=== PATIENT | female | born 1965 | race Caucasian/White ===

== ENCOUNTER 2018-08-31 09:07 | Emergency (ER) | payer MEDICARE, SELFPAY ==
[2018-08-31 09:10] VITALS: BP 129/77; PULSE 98; RESP 18; TEMP 36.9; O2SAT 100
--- NOTE | 2018-08-31 09:24 | DI.RAD.S_ITS ---
PROCEDURE: XR CHEST 1V INDICATIONS: wheezing, recent chest congestion TECHNIQUE: One view of the chest was acquired. COMPARISON: None. FINDINGS: Surgical changes and devices: Anterior cervical spine fusion hardware.. Lungs and pleura: A diffusely coarse interstitial markings bilaterally. No dense consolidation. No pleural effusions or pneumothorax. Mediastinum: Mediastinal contours appear normal. Heart size is normal. Bones and chest wall: No suspicious bony lesions. Overlying soft tissues appear unremarkable. IMPRESSION: Diffuse coarsened interstitial markings, nonspecific. This may reflect chronic edema or acute interstitial infectious/inflammatory process. Correlate clinically. Dictated by: Sophie Pineda M.D. on 08/31/2018 at 10:21 Approved by: Sophie Pineda M.D. on 08/31/2018 at 10:22
[2018-08-31] MEDS: ALBUTEROL/IPRATROPIUM 3 ML AMPUL INH (09:26)
[2018-08-31 09:30] VITALS: PULSE 78; RESP 14; O2SAT 99
--- NOTE | 2018-08-31 09:33 | ED.URI ---
HPI - URI/Sore Throat General Chief Complaint: Upper Respiratory Symptoms Stated Complaint: states wheezing, coughing, stuffy nose x1week Time Seen by Provider: 08/31/18 09:22 Source: patient Mode of arrival: ambulatory Limitations: no limitations History of Present Illness HPI Narrative: 53-year-old female comes in with complaint of wheezing. Patient states she has had upper respiratory congestion of the nose with a nonproductive cough for a week. Patient states no fevers. She states this about once a year she will get sick and required albuterol inhaler. She has 1 at home. She states she does get steroid sometimes. She has a history of tobacco use states she quit about July 18. Patient states that she does not take anything regularly for her lungs or require inhalers regularly.. Patient has not had any nausea no vomiting, no chest pain, other than some shortness of breath with wheezing she denies any other lung issues. Patient has not had any other GI symptoms. No swelling in her lower extremities. She states she has a history of a carry malformation with repair she takes multiple medications for her bones but denies any cardiac or other major medical problems. Related Data Previous Rx's Medication Instructions Recorded prednisone 40 mg PO DAILY 5 Days #10 tab 08/31/18 Allergies Allergy/AdvReac Type Severity Reaction Status Date / Time No Known Drug Allergies Allergy Verified 08/31/18 10:22 Review of Systems Review of Systems ROS Unobtainable: All systems reviewed & are unremarkable except as noted in HPI and below Constitutional Denies chills, Denies fever(s), Denies lethargy and Denies weakness Cardiovascular Denies chest pain, Denies irregular heart rhythm, Denies palpitations, Denies dyspnea, Denies dyspnea on exertion and Denies orthopnea Respiratory Denies change in phlegm color, Reports chest congestion, Reports cough, Denies excessive phlegm production, Denies dyspnea, Denies dyspnea on exertion and Denies wheezing Gastrointestinal Gastrointestinal: Denies abdominal pain, Denies change in bowel habits, Denies diarrhea, Denies nausea and Denies vomiting Genitourinary Denies dysuria, Denies urinary hesitancy and Denies urinary urgency Neurologic Denies weakness Endocrine Denies palpitations Allergic/Immunologic Denies wheezing PFSH Medical History Osteoporosis (Acute) Chiari malformation (Chronic) Social History Smoking Status: Former smoker Social History Smoking Status: Former smoker Exam Narrative Exam Narrative: GEN: well nourished, well appearing female, alert and oriented x 3, patient appears to be in mild distress. HEENT: Atraumatic, pupils are equal round reactive to light, extraocular movements are intact, nares are clear, TMs are clear with no fluid, there is no conjunctival pallor. Throat is clear without any exudates, erythema, tonsillar enlargement or uvular deviation HEART: Regular rate and rhythm without murmur, clicks, rubs. LUNGS:Lungs equal breath sounds bilaterally bilateral expiratory wheezes, no rales, crackles comma chest moves symmetrically. No tachypnea or accessory muscle use. Patient speaks in full sentences. ABD:bowel sounds normal, soft, non-tender, no guarding, rebound, rigidity, no masses noted, no hepatosplenomegaly :No CVA tenderness MSCL: full range of motion, normal gait NEURO:CN 2-12 intact, sensation normal Initial Vital Signs Initial Vital Signs: Vital Signs Temperature 98.5 F 08/31/18 09:10 Pulse Rate 98 H 08/31/18 09:10 Respiratory Rate 18 08/31/18 09:10 Blood Pressure 129/77 08/31/18 09:10 Pulse Oximetry 100 08/31/18 09:10 Course Orders Ordered: ED Orders 08/31/18 09:19 Consult to Respiratory Therapy Evaluate & Treat 08/31/18 09:24 XR chest 1V Stat Discontinued Medications Albuterol (Ventolin) 2.5 mg INH NOW PRN PRN Reason: Shortness Of Breath Or Wheezing Last Admin: 08/31/18 09:45 Dose: 2.5 mg Admin: 08/31/18 09:37 Dose: 2.5 mg Albuterol/Ipratropium (Duoneb) 3 ml INH NOW ONE Stop: 08/31/18 09:21 Last Admin: 08/31/18 10:40 Dose: Not Given Albuterol/Ipratropium (Duoneb) 3 ml INH NOW ONE Stop: 08/31/18 09:23 Last Admin: 08/31/18 09:26 Dose: 3 ml Prednisone (Deltasone) 60 mg PO NOW ONE Stop: 08/31/18 09:23 Last Admin: 08/31/18 10:25 Dose: 60 mg Vital Signs - 8 hr 08/31/18 09:10 08/31/18 09:30 08/31/18 09:38 Temperature 98.5 F Pulse Rate 98 H 78 80 Respiratory Rate 18 14 16 Blood Pressure 129/77 Blood Pressure [Right Arm] Pulse Oximetry 100 99 98 08/31/18 10:30 Temperature Pulse Rate 84 Respiratory Rate 20 Blood Pressure Blood Pressure [Right Arm] 107/52 L Pulse Oximetry 96 [facility] - URI/Sore Throat Imaging Data Chest x-ray: Attestation: I personally reviewed and interpreted this imaging study as follows: My impression: No infiltrate, mild atelectasis. No acute process. No priors for comparison. Radiologist's impression: [address] [address] XRay Report Signed Patient: Rosaura Sierra [facility]#: [id number] : 1965Acct:[id number] Age/Sex: 53 / FDate of Service: 08/31/18 Loc: ED Accession Number: [id number] Procedure: XR chest 1V Ordering Provider: Lyssa Camacho D.O. PROCEDURE: XR CHEST 1V INDICATIONS: wheezing, recent chest congestion TECHNIQUE: One view of the chest was acquired. COMPARISON: None. FINDINGS: Surgical changes and devices: Anterior cervical spine fusion hardware.. Lungs and pleura: A diffusely coarse interstitial markings bilaterally. No dense consolidation. No pleural effusions or pneumothorax. Mediastinum: Mediastinal contours appear normal. Heart size is normal. Bones and chest wall: No suspicious bony lesions. Overlying soft tissues appear unremarkable. IMPRESSION: Diffuse coarsened interstitial markings, nonspecific. This may reflect chronic edema or acute interstitial infectious/inflammatory process. Correlate clinically. Dictated by: Sophie Pineda M.D. on 08/31/2018 at 10:21 Approved by: Sophie Pineda M.D. on 08/31/2018 at 10:22 [facility] Narrative Medical decision making narrative: Patient has a history sounds like reactive airway or possibly mild COPD exacerbation. Patient quit smoking in July. She was encouraged to continue along with course. Plan for a dose of oral prednisone here as well as DuoNeb and re-evaluation. Recheck patient had a DuoNeb and albuterol, wheezes almost completely gone there is very mild. Patient states she feels much better. Plan to DC home she has albuterol with spacer at home and feels comfortable using it. Will give her a short burst of oral prednisone. Patient quit smoking in July encouraged her to continue. Patient and I discussed reasons to return signs and symptoms to watch out for. Chest x-ray was reviewed does not show any clear signs of pneumonia. Discharge Plan Departure Patient Disposition: Home Clinical Impression: Upper respiratory infection, Acute exacerbation of chronic obstructive pulmonary disease (COPD) Discharge Date/Time: 08/31/18 10:57 Interventions: ED Discharge Assessment Last Done: 08/31/18 10:57 Instructions: DI for Chronic Obstructive Pulmonary Disease Activity Restrictions/Additional Instructions: Follow-up with your primary care physician you're not improving in the next 2-3 days. Take steroids until they are completely gone. Keep up the good work avoiding cigarettes. Continue to use albuterol 1-2 puffs every 4 hr as needed for wheezing. Return to the emergency department for fevers greater than 100.4, new chest pain, worsening shortness of breath, persistent wheezing that does not respond to breathing treatments, lightheadedness, passing out, swelling in her lower extremities or other new or concerning symptoms. Prescriptions: New prednisone 20 mg tablet 40 mg PO DAILY 5 Days Qty: 10 RF: 0
[2018-08-31] MEDS: ALBUTEROL 2.5 MG/3 ML NEB (ADULT) INH ×2 (09:37→09:45)
[2018-08-31 09:38] VITALS: PULSE 80; RESP 16; O2SAT 98
--- NOTE | 2018-08-31 09:38 | ED_ITS ---
HPI - URI/Sore Throat General Chief Complaint: Upper Respiratory Symptoms Stated Complaint: states wheezing, coughing, stuffy nose x1week Time Seen by Provider: 08/31/18 09:22 Source: patient Mode of arrival: ambulatory Limitations: no limitations History of Present Illness HPI Narrative: 53-year-old female comes in with complaint of wheezing. Patient states she has had upper respiratory congestion of the nose with a nonproductive cough for a week. Patient states no fevers. She states this about once a year she will get sick and required albuterol inhaler. She has 1 at home. She states she does get steroid sometimes. She has a history of tobacco use states she quit about July 18. Patient states that she does not take anything regularly for her lungs or require inhalers regularly.. Patient has not had any nausea no vomiting, no chest pain, other than some shortness of breath with wheezing she denies any other lung issues. Patient has not had any other GI symptoms. No swelling in her lower extremities. She states she has a history of a carry malformation with repair she takes multiple medications for her bones but denies any cardiac or other major medical problems. Related Data Previous Rx's Medication Instructions Recorded prednisone 40 mg PO DAILY 5 Days #10 tab 08/31/18 Allergies Allergy/AdvReac Type Severity Reaction Status Date / Time No Known Drug Allergies Allergy Verified 08/31/18 10:22 Review of Systems Review of Systems ROS Unobtainable: All systems reviewed & are unremarkable except as noted in HPI and below Constitutional Denies chills, Denies fever(s), Denies lethargy and Denies weakness Cardiovascular Denies chest pain, Denies irregular heart rhythm, Denies palpitations, Denies dyspnea, Denies dyspnea on exertion and Denies orthopnea Respiratory Denies change in phlegm color, Reports chest congestion, Reports cough, Denies excessive phlegm production, Denies dyspnea, Denies dyspnea on exertion and Den ies wheezing Gastrointestinal Gastrointestinal: Denies abdominal pain, Denies change in bowel habits, Denies diarrhea, Denies nausea and Denies vomiting Genitourinary Denies dysuria, Denies urinary hesitancy and Denies urinary urgency Neurologic Denies weakness Endocrine Denies palpitations Allergic/Immunologic Denies wheezing PFSH Medical History Osteoporosis (Acute) Chiari malformation (Chronic) Social History Smoking Status: Former smoker Social History Smoking Status: Former smoker Exam Narrative Exam Narrative: GEN: well nourished, well appearing female, alert and oriented x 3, patient appears to be in mild distress. HEENT: Atraumatic, pupils are equal round reactive to light, extraocular move ments are intact, nares are clear, TMs are clear with no fluid, there is no conjunctival pallor. Throat is clear without any exudates, erythema, tonsillar enlargement or uvular deviation HEART: Regular rate and rhythm without murmur, clicks, rubs. LUNGS:Lungs equal breath sounds bilaterally bilateral expiratory wheezes, no rales, crackles comma chest moves symmetrically. No tachypnea or accessory muscle use. Patient speaks in full sentences. ABD:bowel sounds normal, soft, non-tender, no guarding, rebound, rigidity, no masses noted, no hepatosplenomegaly :No CVA tenderness MSCL: full range of motion, normal gait NEURO:CN 2-12 intact, sensation normal Initial Vital Signs Initial Vital Signs: Vital Signs Temperature 98.5 F 08/31/18 09:10 Pulse Rate 98 H 08/31/18 09:10 Respiratory Rate 18 08/31/18 09:10 Blood Pressure 129/77 08/31/18 09:10 Pulse Oximetry 100 08/31/18 09:10 Course Orders Ordered: ED Orders 08/31/18 09:19 Consult to Respiratory Therapy Evaluate & Treat 08/31/18 09:24 XR chest 1V Stat Discontinued Medications Albuterol (Ventolin) 2.5 mg INH NOW PRN PRN Reason: Shortness Of Breath Or Wheezing Last Admin: 08/31/18 09:45 Dose: 2.5 mg Admin: 08/31/18 09:37 Dose: 2.5 mg Albuterol/Ipratropium (Duoneb) 3 ml INH NOW ONE Stop: 08/31/18 09:21 Last Admin: 08/31/18 10:40 Dose: Not Given Albuterol/Ipratropium (Duoneb) 3 ml INH NOW ONE Stop: 08/31/18 09:23 Last Admin: 08/31/18 09:26 Dose: 3 ml Prednisone (Deltasone) 60 mg PO NOW ONE Stop: 08/31/18 09:23 Last Admin: 08/31/18 10:25 Dose: 60 mg Vital Signs - 8 hr 08/31/18 09:10 08/31/18 09:30 08/31/18 09:38 Temperature 98.5 F Pulse Rate 98 H 78 80 Respiratory Rate 18 14 16 Blood Pressure 129/77 Blood Pressure [Right Arm] Pulse Oximetry 100 99 98 08/31/18 10:30 Temperature Pulse Rate 84 Respiratory Rate 20 Blood Pressure Blood Pressure [Right Arm] 107/52 L Pulse Oximetry 96 [facility] - URI/Sore Throat Imaging Data Chest x-ray: Attestation: I personally reviewed and interpreted this imaging study as follows: My impression: No infiltrate, mild atelectasis. No acute process. No priors for comparison. Radiologist's impression: [address] [address] XRay Report Signed Patient: Rosaura Sierra [facility]#: [id number] : 1965Acct:[id number] Age/Sex: 53 / FDate of Service: 08/31/18 Loc: ED Accession Number: [id number] Procedure: XR chest 1V Ordering Provider: Lyssa Camacho D.O. PROCEDURE: XR CHEST 1V INDICATIONS: wheezing, recent chest congestion TECHNIQUE: One view of the chest was acquired. COMPARISON: None. FINDINGS: Surgical changes and devices: Anterior cervical spine fusion hardware.. Lungs and pleura: A diffusely coarse interstitial markings bilaterally. No dense consolidation. No pleural effusions or pneumothorax. Mediastinum: Mediastinal contours appear normal. Heart size is normal. Bones and chest wall: No suspicious bony lesions. Overlying soft tissues appear unremarkable. IMPRESSION: Diffuse coarsened interstitial markings, nonspecific. This may reflect chronic edema or acute interstitial infectious/inflammatory process. Correlate clinically. Dictated by: Sophie Pineda M.D. on 08/31/2018 at 10:21 Approved by: Sophie Pineda M.D. on 08/31/2018 at 10:22 [facility] Narrative Medical decision making narrative: Patient has a history sounds like reactive airway or possibly mild COPD exacerbation. Patient quit smoking in July. She was encouraged to continue along with course. Plan for a dose of oral prednisone here as well as DuoNeb and re-evaluation. Recheck patient had a DuoNeb and albuterol, wheezes almost completely gone there is very mild. Patient states she feels much better. Plan to DC home she has albuterol with spacer at home and feels comfortable using it. Will give her a short burst of oral prednisone. Patient quit smoking in July encouraged her to continue. Patient and I discussed reasons to return signs and symptoms to watch out for. Chest x-ray was reviewed does not show any clear signs of pneumonia. Discharge Plan Departure Patient Disposition: Home Clinical Impression: Upper respiratory infection, Acute exacerbation of chronic obstructive pulmonary disease (COPD) Discharge Date/Time: 08/31/18 10:57 Interventions: ED Discharge Assessment Last Done: 08/31/18 10:57 Instructions: DI for Chronic Obstructive Pulmonary Disease Activity Restrictions/Additional Instructions: Follow-up with your primary care physician you're not improving in the next 2-3 days. Take steroids until they are completely gone. Keep up the good work avoiding cigarettes. Continue to use albuterol 1-2 puffs every 4 hr as needed for wheezing. Return to the emergency department for fevers greater than 100.4, new chest pain, worsening shortness of breath, persistent wheezing that does not respond to breathing treatments, lightheadedness, passing out, swelling in her lower extremities or other new or concerning symptoms. Prescriptions: New prednisone 20 mg tablet 40 mg PO DAILY 5 Days Qty: 10 RF: 0
[2018-08-31] MEDS: predniSONE 20 MG TABLET 60 MG PO (10:25)
[2018-08-31 10:30] VITALS: BP 107/52; PULSE 84; RESP 20; O2SAT 96
== END 2018-08-31 10:57 | disposition home or self-care (01) ==
PROVIDERS: Emergency Provider Emergency Medicine
DX: J06.9 Acute upper respiratory infection, unspecified (principal); J44.1 Chronic obstructive pulmonary disease with (acute) exacerbation
CPT/HCPCS: 71045; 94640; 99282; 99283; J7613

== ENCOUNTER 2023-03-24 15:58 | Emergency (ER) | payer MEDICARE, SELFPAY ==
[2023-03-24 16:02] VITALS: BP 124/82; PULSE 89; RESP 18; TEMP 36.6; O2SAT 98; BMI 36.6
--- NOTE | 2023-03-24 16:06 | DI.RAD.S_ITS ---
PROCEDURE: XR ANKLE RT MIN 3V INDICATIONS: trip and fall. hx of osteoperosis. TECHNIQUE: 3 views of the ankle were acquired. COMPARISON: None. FINDINGS: Bones: Comminuted distal tibial fracture with tibiotalar joint involvement. Nondisplaced distal fibular fracture noted as well. Marrow text osteopenia Soft tissues: No tibiotalar joint effusion. Achilles tendon appears normal. IMPRESSION: Comminuted intra-articular distal tibial fracture. Nondisplaced distal fibular fracture. Ankle mortise joint space is preserved and symmetric. Approved by: Raymond Guerrero M.D. on 03/24/2023 at 16:47
--- NOTE | 2023-03-24 17:27 | ED_ITS ---
HPI - Extremity Injury (Lower) <Noah Valdez PA-C - Last Filed: 03/24/23 18:56> General Chief Complaint: Extremity Injury, Lower Stated Complaint: Ankle inj Time Seen by Provider: 03/24/23 16:55 Source: patient and family Mode of arrival: Ambulatory History of Present Illness HPI Narrative: This is a 57-year-old female presents to the emergency department due to a right ankle injury. Patient states that she was walking through the house when her dog ran into her and she fell over and injured her right ankle. She does not report any knee, hip, or any other pain to the rest of her body. History of osteoporosis. Related Data Previous Rx's Medication Instructions Recorded oxycodone 5 mg capsule 5 mg PO Q6H PRN pain #20 caps 03/24/23 Allergies Allergy/AdvReac Type Severity Reaction Status Date / Time amoxicillin [From Augmentin] AdvReac Mild Nausea Verified 03/24/23 16:06 clavulanic acid AdvReac Mild Nausea Verified 03/24/23 16:06 [From Augmentin] Review of Systems <Noah Valdez PA-C - Last Filed: 03/24/23 18:56> Review of Systems Narrative: GENERAL: Denies chills, fatigue, malaise, fever, sweats. HEENT: Denies sinus pain, ear pain, sore throat, difficulty swallowing, dizz iness. RESPIRATORY: Denies dyspnea, cough, wheezing, hemoptysis, sputum. CARDIOVASCULAR: Denies chest pain, palpitations, orthopnea, edema, GASTROINTESTINAL: Denies nausea, vomiting, abdominal pain, diarrhea, constipation, melena. : Denies dysuria, frequency, incontinence, hematuria, urinary retention. MUSCULOSKELETAL: Right ankle pain SKIN: Denies rash, skin lesions, or other NEUROLOGIC: Denies weakness, headache, numbness, change in speech, confusion, seizures, incoordination. PSYCHIATRIC: No concerning psychosocial issues. 12 point review of systems is negative except for those stated above Patient History <Noah Valdez PA-C - Last Filed: 03/24/23 18:56> Medical History (Updated 04/08/23 @ 00:01 by ) Chiari malformation Osteoporosis Social History Smoking Status: Current every day smoker Smoking Status: Current every day smoker alcohol intake frequency: 0-2 drinks per day Substance Use Type: does not use Exam <Noah Valdez PA-C - Last Filed: 03/24/23 18:56> Narrative Exam Narrative: GENERAL: Well-developed patient, in mild distress. HEAD: Atraumatic. Normocephalic. EYES: Pupils equal round and reactive. Extraocular motions intact. No scleral icterus. No injection or drainage. ENT: Nose without bleeding, purulent drainage. Throat without erythema, tonsillar hypertrophy or exudate. Airway patent. NECK: Trachea midline. Non tender CARDIOVASCULAR: Regular rate and rhythm without murmurs, gallops, or rubs. RESPIRATORY: Clear to auscultation. Breath sounds equal bilaterally. No wheezes, rales, or rhonchi. GASTROINTESTINAL: Abdomen soft, non-tender, nondistended. EXTREMITIES: Diffuse tenderness to palpation to the right ankle. 2+ dorsalis pedis and posterior tibialis pulses. Neuro intact although states she is chronically unable to move her toes 2 through 5. BACK: Nontender without deformity or crepitance. No flank tenderness. NEURO: AOx3. SKIN: No rash or erythema of visible areas Initial Vital Signs Initial Vital Signs: Vital Signs Temperature 97.9 F 03/24/23 16:02 Pulse Rate 89 03/24/23 16:02 Respiratory Rate 18 03/24/23 16:02 Blood Pressure 124/82 03/24/23 16:02 Pulse Oximetry 98 03/24/23 16:02 Oxygen Delivery Method Room Air 03/24/23 16:02 <Lyssa Camacho DO - Last Filed: 04/08/23 04:55> Initial Vital Signs Initial Vital Signs: Vital Signs Temperature 97.9 F 03/24/23 16:02 Pulse Rate 89 03/24/23 16:02 Respiratory Rate 18 03/24/23 16:02 Blood Pressure 124/82 03/24/23 16:02 Pulse Oximetry 98 03/24/23 16:02 Oxygen Delivery Method Room Air 03/24/23 16:02 Course <Noah Valdez PA-C - Last Filed: 03/24/23 18:56> Orders Ordered: Discontinued Medications Hydrocodone Bitart/Acetaminophen (Hydrocodone/Acet 5/325 Tablet) 1 tab PO NOW ONE Stop: 03/24/23 17:35 Last Admin: 03/24/23 18:00 Dose: Not Given Documented By: HARRIET Oxycodone HCl (Oxycodone Ir 5 Mg Tablet) 5 mg PO NOW ONE Stop: 03/24/23 17:46 Last Admin: 03/24/23 17:49 Dose: 5 mg Documented By: HARRIET Oxycodone/Acetaminophen (Oxycodone/Apap 5/325 Prepack) 1 bottle MISC SEEINSTR ONE Stop: 03/24/23 18:54 Last Admin: 03/24/23 19:09 Dose: 1 bottle Documented By: HARRIET Vital Signs Vital signs: Vital Signs - 8 hr 03/24/23 16:02 03/24/23 18:42 Temperature 97.9 F Pulse Rate 89 89 Respiratory Rate 18 16 Blood Pressure 124/82 128/58 L Pulse Oximetry 98 99 Oxygen Delivery Method Room Air Room Air <Lyssa Camacho DO - Last Filed: 04/08/23 04:55> Orders Ordered: Discontinued Medications Hydrocodone Bitart/Acetaminophen (Hydrocodone/Acet 5/325 Tablet) 1 tab PO NOW ONE Stop: 03/24/23 17:35 Last Admin: 03/24/23 18:00 Dose: Not Given Documented By: HARRIET Oxycodone HCl (Oxycodone Ir 5 Mg Tablet) 5 mg PO NOW ONE Stop: 03/24/23 17:46 Last Admin: 03/24/23 17:49 Dose: 5 mg Documented By: HARRIET Oxycodone/Acetaminophen (Oxycodone/Apap 5/325 Prepack) 1 bottle MISC SEEINSTR ONE Stop: 03/24/23 18:54 Last Admin: 03/24/23 19:09 Dose: 1 bottle Documented By: HARRIET Vital Signs Vital signs: Vital Signs - 8 hr 03/24/23 16:02 03/24/23 18:42 Temperature 97.9 F Pulse Rate 89 89 Respiratory Rate 18 16 Blood Pressure 124/82 128/58 L Pulse Oximetry 98 99 Oxygen Delivery Method Room Air Room Air MDM - Extremity Injury (Lower) <Noah Valdez PA-C - Last Filed: 03/24/23 18:56> Imaging Data Extremity x-ray #1: Radiologist's Impression: [address] [id number] XRay Report Signed Patient: Rosaura Sierra MR#: [id number] : 1965 Acct:[id number] Age/Sex: 57 / F Date of Service: 03/24/23 Loc: ED Accession Number: [id number] ?? Procedure: XR ankle RT min 3V Ordering Provider: Lyssa Camacho D.O. PROCEDURE:? XR ANKLE RT MIN 3V ? INDICATIONS:? trip and fall. hx of osteoperosis. ? TECHNIQUE:? 3 views of the ankle were acquired.? ? COMPARISON:? None. ? FINDINGS:? ? Bones:? Comminuted distal tibial fracture with tibiotalar joint involvement.? Nondisplaced distal fibular fracture noted as well.? Marrow text osteopenia ? Soft tissues:? No tibiotalar joint effusion.? Achilles tendon appears normal.? ? ? IMPRESSION:? Comminuted intra-articular distal tibial fracture.? Nondisplaced distal fibular fracture.? Ankle mortise joint space is preserved and symmetric. ? ? ? Approved by: Raymond Guerrero M.D. on 03/24/2023 at 16:47? MDM Narrative Medical decision making narrative: MDM * differential diagnosis includes but not limited to * Prior records reviewed: Patient was seen in 2019 for a COPD exacerbation. * My lab interpretation: None obtained * My imaging interpretation: X-ray findings show a comminuted intra-articular tibial fracture as well as a distal fibula fracture * Clinical Decision Rules/Scores evaluated: None * Independent discussions with: None ED Course: This is a 57-year-old female presents emergency department due to a ground level fall resulting in a comminuted intra-articular tibial fracture as well as a nondisplaced distal fibula fracture. Case was discussed with Dr. Merritt, orthopedist, who recommended posterior short-leg splint and follow up outpatient. Splint was applied without complications. Oxycodone prescribed for pain control. Patient was neurovascularly intact throughout lower extremity. Shared Decision Making: Discussed plan with patient who is comfortable with the plan Social Considerations: None Disposition: Discharged to home Discharge Plan Departure Patient Disposition: Home Clinical Impression: Ankle fracture Instructions: Ankle Fracture Activity Restrictions/Additional Instructions: Thank you for coming to the [facility] Emergency Department today. You have fractured your right ankle. Please keep your foot in the splint and remain nonweightbearing until you are able to follow up with Dr. Merritt who is information is provided. Please use Tylenol as needed for the pain but you may use oxycodone prescribed for breakthrough pain. I hope you feel better soon. Please follow up with your primary care provider within a week if your symptoms continue. If you do not have a primary care provider please contact the [facility] Resource line at [phone]. They will ask some questions about your medical history and help you get set up with a provider in the community. Prescriptions: New oxycodone 5 mg capsule 5 mg PO Q6H PRN (Reason: pain) Qty: 20 0RF Referrals: Eduardo Merritt MD [Physician] - (f/u intraarticular distal tibia and fibula fracture ) Stand Alone Forms: Patient Portal/API <Lyssa Camacho DO - Last Filed: 04/08/23 04:55> Cosign ED Attending Cosmollyature Attestation: I was immediately available in the department for consultation. Documentation has been reviewed.
[2023-03-24] MEDS: OXYCODONE IR 5 MG TABLET PO (17:49)
[2023-03-24 18:42] VITALS: BP 128/58; PULSE 89; RESP 16; O2SAT 99
[2023-03-24] MEDS: OXYCODONE/APAP 5/325 PREPACK 1 BOTTLE MISC (19:09)
--- NOTE | 2023-03-24 19:09 | PC.NURSE ---
pt daughter works in orthopedics office. thorough understanding of splint care and pain management expressed by her. gone over with patient as well, who verbalized understanding. both pt and daughter declined crutches, pt states she is unable to use them and has a knee scooter already on the way to her house.
== END 2023-03-24 19:12 | disposition home or self-care (01) ==
PROVIDERS: Emergency Provider Physician Assistant Medical
DX: S82.891A Other fracture of right lower leg, initial encounter for closed fracture (principal); W18.30XA Fall on same level, unspecified, initial encounter
CPT/HCPCS: 29515; 73610; 99283